=== PATIENT | female | born 2005 | race Caucasian/White ===

== ENCOUNTER → 2025-03-29 | Outpatient (CLI) | payer BC, SELFPAY ==
[2025-04-04 13:08] LABS: Egg, White <0.10 kU/L (Class 0); SCALLOP <0.10 kU/L (Class 0); SESAME SEED 0.49 kU/L (Class I); Walnut, (Food) 0.26 kU/L (Class 0/I)
== END | disposition home or self-care (01) ==
LOC: MTLAB 15:10
PROVIDERS: PCP Nurse Practitioner Family; Referring Provider Nurse Practitioner Family; Visit Provider Nurse Practitioner Family
DX: T78.1XXA Other adverse food reactions, not elsewhere classified, initial encounter (principal)
CPT/HCPCS: 36415; 86003